=== PATIENT | female | born 1995 | race Caucasian/White ===

== ENCOUNTER 2023-03-22 15:36 | Outpatient (CLI) | payer BC, SELFPAY | END 2023-03-22 15:37 | disposition home or self-care (01) | PROVIDERS: PCP Family Medicine; Visit Provider Family Medicine | DX: Z00.00 Encounter for general adult medical examination without abnormal findings (principal); I10 Essential (primary) hypertension; Z13.6 Encounter for screening for cardiovascular disorders | CPT/HCPCS: 80053; 80061 ==

== ENCOUNTER 2023-12-31 14:25 | Outpatient (CLI) | payer BC, SELFPAY ==
[2024-01-01 01:45] LABS: Chlamydia DNA Amplified* Not Detected (No Detected); GC DNA Amplified* Not Detected (No Detected)
== END 2023-12-31 14:26 | disposition home or self-care (01) ==
LOC: FRMREF 14:25
PROVIDERS: PCP Family Medicine; Visit Provider Family Medicine
DX: N89.8 Other specified noninflammatory disorders of vagina (principal)
CPT/HCPCS: 87491; 87591

== ENCOUNTER 2024-01-21 09:45 | Outpatient (CLI) | payer BC, SELFPAY ==
[2024-01-21 16:06] LABS: Bacterial Vaginosis* NOT DETECTED (No Detected); Candida glab/krus NOT DETECTED (No Detected); Candida species DETECTED (No Detected); Trichomonas vaginalis NOT DETECTED (No Detected)
== END 2024-01-21 09:46 | disposition home or self-care (01) ==
LOC: FRMREF 09:45
PROVIDERS: PCP Family Medicine; Visit Provider Physician Assistant Medical
DX: N89.8 Other specified noninflammatory disorders of vagina (principal)
CPT/HCPCS: 81513; 87481; 87661

== ENCOUNTER 2024-03-06 21:36 | Outpatient (CLI) | payer BC, SELFPAY | END 2024-03-06 21:37 | disposition home or self-care (01) | LOC: NFLDREF 21:36 | PROVIDERS: PCP Family Medicine; Visit Provider Registered Nurse | DX: Z13.29 Encounter for screening for other suspected endocrine disorder (principal); R53.83 Other fatigue; R10.2 Pelvic and perineal pain | CPT/HCPCS: 84443; 87086 ==

== ENCOUNTER 2024-09-11 13:13 | Outpatient (CLI) | payer BC, SELFPAY | END 2024-09-11 13:14 | disposition home or self-care (01) | PROVIDERS: PCP Family Medicine; Visit Provider Family Medicine | DX: Z00.00 Encounter for general adult medical examination without abnormal findings (principal); I10 Essential (primary) hypertension; N89.8 Other specified noninflammatory disorders of vagina; Z86.19 Personal history of other infectious and parasitic diseases | CPT/HCPCS: 80053; 82043; 82570; 86592; 86703 ==

== ENCOUNTER 2024-09-16 14:40 | Outpatient (CLI) | payer BC, SELFPAY | END 2024-09-16 14:41 | disposition home or self-care (01) | LOC: NFLDREF 09-17 12:38 | PROVIDERS: PCP Family Medicine; Referring Provider Family Medicine; Visit Provider Family Medicine | DX: I10 Essential (primary) hypertension (principal); N89.8 Other specified noninflammatory disorders of vagina; B00.9 Herpesviral infection, unspecified; Z86.19 Personal history of other infectious and parasitic diseases | CPT/HCPCS: 82043; 82570; 87491; 87591 ==

== ENCOUNTER 2025-10-26 15:04 | Outpatient (CLI) | payer BC, SELFPAY ==
[2025-10-26 23:00] LABS: Chlamydia DNA Amplified* NOT DETECTED (No Detected); GC DNA Amplified* NOT DETECTED (No Detected)
[2025-10-30 09:23] LABS: HPV Source Endocervical
[2025-10-30 14:06] LABS: Pap Test Digital Imaging Done
== END 2025-10-26 15:05 | disposition home or self-care (01) ==
PROVIDERS: PCP Family Medicine; Visit Provider Family Medicine
DX: Z12.4 Encounter for screening for malignant neoplasm of cervix (principal); Z11.3 Encounter for screening for infections with a predominantly sexual mode of transmission; Z11.59 Encounter for screening for other viral diseases; I10 Essential (primary) hypertension
CPT/HCPCS: 82043; 82570; 86703; 86803; 87491; 87591; 87624; 87625; 88141; 88142; 88175